=== PATIENT | male | born 1980 | race Hispanic/Latino ===

== ENCOUNTER 2024-05-23 21:45 | Emergency (ER) | payer BC ==
[~2024-05-23] VITALS: Ht 172.7 cm; Wt 176.9 kg
[2024-05-23 21:50] VITALS: TEMP 97.6
--- NOTE | 2024-05-23 23:22 | ERN ---
ED Note History of Present Illness Stated Complaint: BLEEDING TO RT LOWER LEG AFTER PUNCTURING IT SUN Chief Complaint: Lower Extremity Pain/Injury Time Seen by MD: 21:58 Time Seen by Midlevel: 21:58 Dictation: The patient is a 43-year-old male with no past medical history who presents to the emergency department with complaints bleeding to right lower leg onset after he injured it with a branch. Patient reports the bleeding has stopped on Tuesday but started again today after he accidentally rubbed it against his jeans. unknown tdap status. Allergies: Coded Allergies: No Known Allergies (Unverified Allergy, Unknown, 05/23/24) Past Medical History Past Medical History: No Pertinent History Surgical History: None RN Note Reviewed/Agreed w/PFSH: Yes Review of System Dictation Constitutional: Negative for fever,chills, and weight loss Eyes: Negative for injury, pain,redness, and discharge ENT: Negative for injury,pain or swelling Cardiovascular: Negative for chest pain, palpitations, and edema Respiratory: Negative for shortness of breath, cough, and wheezing, Abdomen/GI: Negative for abdominal pain, nausea, vomiting, diarrhea, and constipation Back: Negative for injury and pain : Negative for injury, bleeding and discharge MS/Extremity: Negative for injury and deformity. Skin: Negative for rash, and discoloration positive for right lower leg wound Neuro: Negative for headache, weakness, numbness, tingling, and seizure Psych: Negative for suicide ideation, homicidal ideation, and hallucinations Initial Vital Sign VS Vital Signs Date Time Temp Pulse Resp B/P (MAP) Pulse Ox O2 Delivery O2 Flow Rate FiO2 05/23/24 21:50 97.5 104 18 158/99 97 Room Air 05/24/24 00:15 0 21 Physical Exam Dictation Vital Signs reviewed General Appearance: Alert, oriented x 3, no acute distress, well developed, nourished. Head and Face: non-traumatic. Eyes: PERRL, pink conjunctivas, eyelid no trauma, anterior chamber with arcus senilis. Ears: Pinnas intact and no signs of trauma or erythema ear canals clear and no discharge TM no erythema Nose: No discharge, no bleeding. Oropharynx: Mouth normal, tongue pink. pharynx clear,no erythema, tonsils no exudates, no abscesses noted, mucous membrane moist Neck: Supple, non-tender, no thyromegaly, no masses, no JVD, no bruits Breast:Deferred Chest:No tenderness, no crepitus, no paradoxical movement, no retractions Lungs:Clear, well-ventilated, symmetric, no rales, no wheezing, no rhonchi, no stridor, good breath sounds bilaterally Heart: Regular rate, regular rhythm, no murmur, no gallops Vascular: no peripheral edema, Abdomen: Soft, positive bowel sounds, nondistended, no guarding, nontender, no rebound, no masses no hepatomegaly, no splenomegaly, no Hudson's sign, no hernias. Rectal: Deferred Genital: Deferred Neurological: Normal speech, motor function intact, sensory function intact Musculoskeletal: Neck nontender, full range of motion, back nontender, full ra nge of motion, Extremities: nontender, full range of motion Skin: Color pink, dry, no turgor, no rash, no lacerations, no abrasions, no contusions. small bleeding varicose vein. Lymphatic: Deferred Results (Laboratory/Radiology) Labs Reviewed?: Yes ED Course ED Course Orders Procedure Category Date Status Time Diph,Pertuss(Acell),Tet PHA 05/23/24 Complete Vac/Pf (Tdap) 22:30 Lidocaine 1%-Epi PHA 05/24/24 In Process 1:100,000 (Lidocaine 00:00 Current Medications Medications (Trade) Dose Ordered Sig/Johny Route PRN Reason Start Time Stop Time Status Last Admin Dose Admin Diphtheria/ Tetanus/Acell Pertussis (Tdap) 0.5 ml ONCE ONCE IM 05/23/24 22:30 05/23/24 22:31 DC 05/24/24 00:14 Lidocaine/ Epinephrine (Lidocaine 1%-Epi 1:100,000) 20 ml ONCE IJ 05/24/24 00:00 06/23/24 00:00 Vital Signs Date Time Temp Pulse Resp B/P (MAP) Pulse Ox O2 Delivery O2 Flow Rate FiO2 05/24/24 00:15 115 19 144/67 97 Room Air* 0 21 05/23/24 21:50 97.5 104 18 158/99 97 Room Air Medical Decision Making MDM The patient is a 43-year-old male with no past medical history who presents to the emergency department with complaints bleeding to right lower leg onset Tuesday after he injured it with a branch. Patient reports the bleeding has stopped on Tuesday but started again today after he accidentally rubbed it against his jeans. unknown tdap status. Varicose vein bleeding controlled by 2 sutures figure [address] Rojas. Patient no longer bleeding. Differential diagnosis: Arterial bleed, varicose leads, hemophage Need for hospitalization: Patient does not meet criteria for hospitalization. There are no social concerns with this patient. Procedure Procedure Dictation: Time and Date Performed:05/24/2024 1223 INDICATION: Bleeding varicose vein Location: Right lower leg Informed consent was obtained. Pre-procedure time out was obtained. Anesthetic: 2% lidocaine with epi Manual prep of skin and wound was done with hibiclens. Foreign Body: NO foreign bodies were identified. Length Repaired: 0.5cm Suture used: 2 # of simple sutures:figure 8 Aseptic technique was used during the entire procedure. Wound Location: lower extremity Wound Length (cm): 1 Wound's Depth, Shape: superficial Wound Explored: clean Betadine Prep?: Yes Anesthesia: Lidocaine w/ Epi Volume Anesthetic (ccs): 1 Wound Debrided: minimal Wound Repaired With: sutures Suture Size/Type: nylon Number of Sutures: 2 Layer Closure?: Yes DX & DISP Disposition: Discharge Departure Impression: Primary Impression: Bleeding from varicose veins of right lower extremity Condition: Stable Scripts Clindamycin HCl (Clindamycin HCl) 300 Mg Capsule 1 CAP PO TID for 5 Days, #20 CAP 0 Refills Prov: BETTY GEORGE [facility] 05/24/24 Additional Instructions: Keep your stitches clean and dry. Do not put your stitches under water, such as in a bath, pool, or sena. This can slow healing and raise your chance of getting an infection. Avoid activities or sports that could hurt the area of your stitches for 1-2 weeks. You should call your doctor if you develop any fever, redness or swelling around the cut, or pus draining from the cut. Your sutures will need to be removed in 10-14 days. FOLLOW-UP WITH PRIMARY CARE PROVIDER IN 1 TO 2 DAYS. TAKE MEDICATIONS DIRECTED HERE IN THE EMERGENCY ROOM. OKAY TO CONTINUE HOME MEDICATIONS UNLESS OTHERWISE DISCUSSED DURING YOUR VISIT IN THE EMERGENCY ROOM TODAY. RETURN TO YOUR NEAREST EMERGENCY ROOM IF SYMPTOMS WORSEN OR IF THERE IS NO IMPROVEMENT. CALL 911 IF YOU NEED IMMEDIATE ASSISTANCE. TAKE TYLENOL OR MOTRIN [id number] NEEDED AND IF NO CONTRAINDICATIONS ARE PRESENT. INCREASE ORAL HYDRATION. A WOUND CULTURE OR URINE CULTURE WAS ORDERED HERE IN THE EMERGENCY ROOM DEPARTMENT PLEASE FOLLOW-UP WITH PRIMARY CARE PROVIDER AND ADVISE THEM TO GET REPEAT PORTS FROM OUR FACILITY. IF YOU HAD ANY PINA WRAP/SPLINTS THAT WERE APPLIED HERE, PLEASE DO NOT REMOVE THEM UNTIL YOU SEE YOUR PRIMARY CARE OR SPECIALTY. Referrals: SELF,REFERRAL (PCP) Time of Disposition: 00:26 I have reviewed the case, and I agree with, Diagnosis and Plan BETTY GEORGE [employer] May 23, 2024 23:22
--- NOTE | 2024-05-23 23:43 | NUR ---
CARE ASSUMED AT THIS TIME PT PLACED IN ROOM 3 ED
[2024-05-24] MEDS: LIDOCAINE 1%-EPI 1:100,000 20 ML VIAL IJ SCH
[2024-05-24] MEDS: DIPH,PERTUSS(ACELL),TET VAC/PF 0.5 ML VIAL IM ONE (00:14)
[2024-05-24 00:15] VITALS: BP 144/67; PULSE 115; RESP 19; O2SAT 97
[2024-05-24] MEDS ORDERED: CLIN-141 PO (00:30)
[2024-05-24] MEDS: CLINDAMYCIN 150 MG CAP PO ONE (00:58)
== END 2024-05-24 00:58 | disposition home or self-care (01) ==
LOC: EDH 21:45
DX: M79.661 Pain in right lower leg (principal); I83.891 Varicose veins of right lower extremity with other complications
CPT/HCPCS: 99284; 90715; 90471; 12001; J3490; 99283